=== PATIENT | female | born 1980 | race Caucasian/White ===

== ENCOUNTER 2023-12-17 15:22 | Inpatient (IN) | payer OTHER ==
[~2023-12-17] VITALS: Ht 162.6 cm; Wt 72.6 kg
[~2023-12-17 15:22] MED LIST: Z.0.IBUPROFEN400 MG PO
[2023-12-17] MEDS ORDERED: KETOROLAC TROMETHAMINE 30 MG/ML VIAL ONE (15:46)
[2023-12-17] MEDS ORDERED: ONDANSETRON HCL INJ 2MG/ML 2ML 2 MG/ML VIAL ONE (15:46)
[2023-12-17] MEDS ORDERED: ROCURONIUM BROMIDE 10 MG/ML 5ML VIAL IV ONE (15:46)
[2023-12-17] MEDS ORDERED: PROPOFOL IV EMULSION 10 MG/ML 20 ML VIAL ONE (15:46)
[2023-12-17] MEDS ORDERED: GLYCOPYRROLATE INJ 0.2 MG/ML VIAL ONE (15:46)
[2023-12-17] MEDS ORDERED: NEOSTIGMINE 1 MG/ML 10ML VIAL ONE (15:46)
[2023-12-17] MEDS ORDERED: LIDOCAINE HCL 2% LOCAL INJ 5 ML SDV VIAL INJ ONE (15:46)
[2023-12-17] MEDS ORDERED: DEXAMETHASONE SOD PHOS INJ 4 MG/ML SDV ONE (15:46)
[2023-12-17 16:11] LABS: BASOPHILS # (AUTO) 0.1 (0.0-0.1); BASOPHILS % 0.5 % (0.0-1.0); EOSINOPHILS # (AUTO) 0.2 (0.0-0.4); EOSINOPHILS % 2.1 % (0.0-6.0); HEMATOCRIT 39.4 % (34.2-44.1); HEMOGLOBIN 12.3 g/dL (12.0-16.0); LYMPHOCYTES # (AUTO) 2.7 (1.0-3.2); LYMPHOCYTES % 26.3 % (18.0-39.1); MEAN CORPUSCULAR HEMOGLOBIN 27.3 pg (28-32); MEAN CORPUSCULAR HGB CONC 31.2 g/dL (31-35); MEAN CORPUSCULAR VOLUME 87.6 fL (81-99); MONOCYTES # (AUTO) 0.7 (0.2-0.8); MONOCYTES % 6.8 % (4.4-11.3); NEUTROPHILS # (AUTO) 6.5 (2.1-6.9); NEUTROPHILS % 64.1 % (38.7-80.0); PLATELET COUNT 338 x10e3/uL (140-360); RED CELL DISTRIBUTION WIDTH 13.7 % (11.7-14.4); WHITE BLOOD COUNT 10.16 x10e3/uL (4.8-10.8)
[2023-12-17] MEDS: SODIUM CHLORIDE 0.9% 1000ML 1,000 ML IV STA (16:15)
[2023-12-17] MEDS: Morphine 4mg INJECTION 4 MG/ML INJ IV STA (16:17)
[2023-12-17] MEDS: ONDANSETRON HCL INJ 2MG/ML 2ML 2 MG/ML VIAL IV STA (16:18)
[2023-12-17 16:24] LABS: INR 0.99; PROTHROMBIN TIME 13.6 seconds (11.9-14.5)
[2023-12-17 16:25] LABS: PARTIAL THROMBOPLASTIN TIME 28.6 seconds (23.8-35.5)
[2023-12-17 16:33] LABS: ALANINE AMINOTRANSFERASE 10 IU/L (0-55); ALBUMIN 3.6 g/dL (3.5-5.0); ALKALINE PHOSPHATASE 90 IU/L (40-150); ANION GAP 15.7 mmol/L (8-16); BILIRUBIN,TOTAL 0.2 mg/dL (0.2-1.2); BLOOD UREA NITROGEN 7 mg/dL (7-26); BUN/CREATININE RATIO 9 (6-25); CALCIUM 8.9 mg/dL (8.4-10.2); CARBON DIOXIDE 23 mmol/L (22-29); CHLORIDE 106 mmol/L (98-107); CREATINE KINASE 34 IU/L (29-168); CREATININE, SERUM 0.77 mg/dL (0.57-1.11); EST GLOMERULAR FILTRATION RATE 97 ML/MIN (>=60); GLUCOSE 83 mg/dL (74-118); LIPASE 8 U/L (8-78); MAGNESIUM 2.1 MG/DL (1.3-2.1); POTASSIUM 3.7 mmol/L (3.5-5.1); SODIUM 141 mmol/L (136-145); TOTAL PROTEIN 7.3 g/dL (6.5-8.1)
[2023-12-17 16:39] LABS: TROPONIN I 0.004 ng/mL (0-0.300)
[2023-12-17] MEDS ORDERED: IOPAMIDOL 370 MG/ML 100 ML INFUS..BTL INJ ONE (16:55)
[2023-12-17 18:56] VITALS: PULSE 54; RESP 19; TEMP 97.9
[2023-12-17] MEDS: SODIUM CHLORIDE 0.9% 1000ML 1,000 ML IV SCH (19:27)
[2023-12-17] MEDS: ONDANSETRON HCL INJ 2MG/ML 2ML 2 MG/ML VIAL IV PRN (20:23)
[2023-12-17] MEDS: Morphine 4mg INJECTION 4 MG/ML INJ IV PRN (20:23)
[2023-12-17 21:00] VITALS: BP 109/85; PULSE 58; RESP 19; TEMP 97.9; O2SAT 100
[2023-12-17] MEDS ORDERED: FAMOTIDINE20 MG PO (23:41)
[2023-12-17] MEDS ORDERED: KEPPRA750 MG PO (23:41)
[2023-12-17] MEDS ORDERED: ATORVASTATIN CA20 MG PO (23:41)
[2023-12-17] MEDS ORDERED: LAMICTAL100 MG PO (23:41)
[2023-12-17] MEDS ORDERED: XCOPRI PO (23:41)
[2023-12-17] MEDS ORDERED: PANTOPRAZOLE SO40 MG PO (23:41)
[2023-12-17] MEDS ORDERED: VITAMIN D250 MC1 PO (23:41)
[2023-12-17] MEDS ORDERED: OMEPRAZOLE40 MG PO (23:41)
[2023-12-17] MEDS ORDERED: SUCRALFATE1 GM PO (23:41)
[2023-12-18] VITALS: BP 129/60; PULSE 51; RESP 20; TEMP 98.1; O2SAT 96
[2023-12-18 04:00] VITALS: BP_SYST 144; PULSE 64; RESP 20; TEMP 97.9; O2SAT 96
[2023-12-18 05:39] LABS: BASOPHILS # (AUTO) 0.1 (0.0-0.1); BASOPHILS % 0.4 % (0.0-1.0); EOSINOPHILS # (AUTO) 0.1 (0.0-0.4); EOSINOPHILS % 0.9 % (0.0-6.0); HEMATOCRIT 36.4 % (34.2-44.1); HEMOGLOBIN 11.4 g/dL (12.0-16.0); LYMPHOCYTES # (AUTO) 2.8 (1.0-3.2); LYMPHOCYTES % 20.6 % (18.0-39.1); MEAN CORPUSCULAR HEMOGLOBIN 27.8 pg (28-32); MEAN CORPUSCULAR HGB CONC 31.3 g/dL (31-35); MEAN CORPUSCULAR VOLUME 88.8 fL (81-99); MONOCYTES # (AUTO) 0.7 (0.2-0.8); MONOCYTES % 5.3 % (4.4-11.3); NEUTROPHILS # (AUTO) 9.9 (2.1-6.9); NEUTROPHILS % 72.5 % (38.7-80.0); PLATELET COUNT 335 x10e3/uL (140-360); RED CELL DISTRIBUTION WIDTH 13.7 % (11.7-14.4); WHITE BLOOD COUNT 13.67 x10e3/uL (4.8-10.8)
[2023-12-18 06:06] LABS: ALBUMIN 3.3 g/dL (3.5-5.0); ALBUMIN/GLOBULIN RATIO 0.9 (0.8-2.0); ANION GAP 12.4 mmol/L (8-16); BILIRUBIN,TOTAL 0.2 mg/dL (0.2-1.2); CALCIUM 8.5 mg/dL (8.4-10.2); CREATININE, SERUM 0.67 mg/dL (0.57-1.11); TOTAL PROTEIN 6.8 g/dL (6.5-8.1)
[2023-12-18 06:15] LABS: POTASSIUM 3.4 mmol/L (3.5-5.1)
[2023-12-18 08:29] VITALS: BP 143/72; PULSE 72; RESP 18; TEMP 98; O2SAT 96
[2023-12-18] MEDS ORDERED: SUGAMMADEX SODIUM 200 MG/2 ML VIAL IV ONE (09:59)
[2023-12-18] MEDS ORDERED: ACETAMINOPHEN 1000 MG/100 ML 100 ML IV ONE (09:59)
[2023-12-18] MEDS ORDERED: BUPIVACAINE 0.25% 30ML SDV ONE (10:33)
[2023-12-18] MEDS: ONDANSETRON HCL INJ 2MG/ML 2ML 2 MG/ML VIAL ONE (12:45)
[2023-12-18] MEDS: SUCRALFATE 1 GM TAB PO SCH (13:00)
[2023-12-18] MEDS: PIPERACILLIN/TAZOBACTAM 3.375 GM VIAL ONE (13:29)
[2023-12-18] MEDS: SODIUM CHLORIDE 0.9% 250ML 250 ML ONE (13:30)
[2023-12-18] MEDS ORDERED: FENTANYL CITRATE/PF 100MCG/2 ML INJ ONE (15:30)
[2023-12-18] MEDS ORDERED: MIDAZOLAM HCL 2 MG/2 ML VIAL ONE (15:30)
[2023-12-18 16:11] VITALS: BP 129/65; PULSE 56; RESP 17; TEMP 98.2; O2SAT 95
[2023-12-18] MEDS: LAMOTRIGINE 100 MG TAB PO SCH (17:43)
[2023-12-18] MEDS ORDERED: LEVETIRACETAM 500MG/5ML VIAL 2,000 MG in SODIUM CHLORIDE 0.9% 100 ML IV SCH (18:00)
[2023-12-18] MEDS ORDERED: LEVETIRACETAM 500MG/5ML VIAL 2,000 MG in SODIUM CHLORIDE 0.9% 150 ML IV SCH (18:00)
[2023-12-18] MEDS: LEVETIRACETAM 500MG/5ML VIAL 2,000 MG in SODIUM CHLORIDE 0.9% 150 ML IV SCH (18:42)
[2023-12-18] MEDS: XCOPRI 200 MG PO SCH (20:32)
[2023-12-18 21:01] VITALS: BP 101/54; PULSE 53; RESP 17; TEMP 98; O2SAT 98
[2023-12-18 23:03] VITALS: BP 101/54; PULSE 53; RESP 17; TEMP 98; O2SAT 98
[2023-12-19 00:04] VITALS: BP 94/57; PULSE 74; RESP 16; TEMP 98; O2SAT 95
[2023-12-19 04:07] VITALS: BP 97/46; PULSE 60; RESP 17; TEMP 98; O2SAT 95
[2023-12-19 05:53] LABS: BASOPHILS % 0.3 % (0.0-1.0); EOSINOPHILS # (AUTO) 0.1 (0.0-0.4); EOSINOPHILS % 1.3 % (0.0-6.0); HEMATOCRIT 34.9 % (34.2-44.1); HEMOGLOBIN 10.7 g/dL (12.0-16.0); LYMPHOCYTES # (AUTO) 2.4 (1.0-3.2); LYMPHOCYTES % 23.9 % (18.0-39.1); MEAN CORPUSCULAR HEMOGLOBIN 27.8 pg (28-32); MEAN CORPUSCULAR HGB CONC 30.7 g/dL (31-35); MEAN CORPUSCULAR VOLUME 90.6 fL (81-99); MONOCYTES # (AUTO) 0.9 (0.2-0.8); MONOCYTES % 8.3 % (4.4-11.3); NEUTROPHILS # (AUTO) 6.8 (2.1-6.9); NEUTROPHILS % 65.9 % (38.7-80.0); PLATELET COUNT 273 x10e3/uL (140-360); RED BLOOD COUNT 3.85 x10e6/uL (3.6-5.1); RED CELL DISTRIBUTION WIDTH 13.8 % (11.7-14.4); WHITE BLOOD COUNT 10.23 x10e3/uL (4.8-10.8)
[2023-12-19 05:59] LABS: ANION GAP 13.3 mmol/L (8-16); BLOOD UREA NITROGEN < 5 mg/dL (7-26); CALCIUM 7.9 mg/dL (8.4-10.2); CARBON DIOXIDE 22 mmol/L (22-29); CHLORIDE 108 mmol/L (98-107); CREATININE, SERUM 0.67 mg/dL (0.57-1.11); EST GLOMERULAR FILTRATION RATE 110 ML/MIN (>=60); GLUCOSE 86 mg/dL (74-118); SODIUM 140 mmol/L (136-145)
[2023-12-19 06:04] LABS: BUN/CREATININE RATIO 7 (6-25); POTASSIUM 3.3 mmol/L (3.5-5.1)
[2023-12-19 07:05] LABS: BILIRUBIN,DIRECT 0.1 mg/dL (0.0-0.5); BILIRUBIN,TOTAL 0.2 mg/dL (0.2-1.2)
[2023-12-19 08:18] VITALS: BP 105/45; PULSE 59; RESP 18; TEMP 98; O2SAT 95
[2023-12-19] MEDS: PANTOPRAZOLE SOD 40 MG TABEC PO SCH (08:51)
[2023-12-19] MEDS ORDERED: ULTRAM 50MG50 MG PO (11:05)
[2023-12-19 11:48] VITALS: BP 136/69; PULSE 62; RESP 19; TEMP 98.2; O2SAT 97
[2023-12-19 16:33] VITALS: BP 121/50; PULSE 71; RESP 18; TEMP 97.9; O2SAT 98
[2023-12-19 20:00] VITALS: BP 120/53; PULSE 87; RESP 18; TEMP 98.6; O2SAT 98
[2023-12-20] MEDS ORDERED: LEVETIRACETAM 500 MG TAB PO SCH (21:00)
== END 2023-12-19 20:30 | disposition home or self-care (01) | DRG 418 ==
LOC: ER 15:31 → ERHOLD 16:33 → MED/SURG2 20:37
PROVIDERS: ADMIT Internal Medicine; ATTEND Internal Medicine
PROC: 0FT44ZZ Resection of Gallbladder, Percutaneous Endoscopic Approach (ICD-10-PCS; principal; 2023-12-18 10:34)
DX: K80.00 Calculus of gallbladder with acute cholecystitis without obstruction (principal); G40.209 Localization-related (focal) (partial) symptomatic epilepsy and epileptic syndromes with complex partial seizures, not intractable, without status epilepticus; E86.0 Dehydration; I95.9 Hypotension, unspecified; K21.9 Gastro-esophageal reflux disease without esophagitis; Z11.52 Encounter for screening for COVID-19; Z79.899 Other long term (current) drug therapy; Z90.710 Acquired absence of both cervix and uterus
CPT/HCPCS: 36415; 74177; 80048; 80053; 80076; 82550; 83690; 83735; 84484; 84702; 85025; 85610; 85730; 88304; 93005; 99284; J1100; J1885; J2001; J2250; J2270; J2405; J2470; J2543; J2710; J7030; J7050; Q9967; U0002